=== PATIENT | male | born 1950 | race American Indian/Alaskan Native ===

== ENCOUNTER 2019-01-26 20:02 | Emergency (ER) | payer MEDICARE, OTHER ==
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
--- NOTE | 2019-01-26 22:03 | XRay Report ---
PROCEDURE: XR SHOULDER 2+V RT TECHNIQUE: Right shoulder radiographs, views. HISTORY: left anterior shoulder pain COMPARISONS: None . FINDINGS: Bony alignment and joint spaces are within normal limits. An acute fracture is not identified. Minima l degree of osteophyte formation is noted involving the acromioclavicular joint. Soft tissues are unr emarkable. Visualized right lung and right ribs are normal limits. IMPRESSION: Minimal degree of osteoarthritis right acromioclavicular joint This document is electronically signed by Edgardo Uribe MD., January 26 2019 10:01:14 PM ET
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
[2019-01-27 01:13] VITALS: BP 124/70
== END 2019-01-27 01:12 | disposition home or self-care (01) ==
LOC: ED 20:02
DX: M19.011 Primary osteoarthritis, right shoulder (principal); I10 Essential (primary) hypertension; E11.9 Type 2 diabetes mellitus without complications; V89.2XXA Person injured in unspecified motor-vehicle accident, traffic, initial encounter; Y93.89 Activity, other specified; Y92.488 Other paved roadways as the place of occurrence of the external cause; Y99.8 Other external cause status
CPT/HCPCS: 99283